=== PATIENT | female | born 1965 | race Caucasian/White ===

== ENCOUNTER 2020-04-24 07:49 | Inpatient (IN) | payer BC ==
[2020-04-24] VITALS (20 sets, daily range): BP systolic 93–117; BP diastolic 44–72
[~2020-04-24] VITALS: Ht 175.3 cm; Wt 85.5 kg
[2020-04-24] MEDS ORDERED: iohexol 300mg/ml 100ml inj. ONE (08:39)
[2020-04-24 08:54] LABS: BASOPHILS % (AUTO) 0.1 % (0-1); EOSINOPHILS % (AUTO) 0.2 % (0-6); HEMATOCRIT 39.9 % (35.0-45.0); HEMOGLOBIN 13.3 g/dl (12.0-16.0); LYMPHOCYTES # (AUTO) 1.6 X10'3 (1.1-4.8); LYMPHOCYTES % (AUTO) 10.3 % (21-51); MEAN CORPUSCULAR HEMOGLOBIN 29.5 PG (27.0-31.0); MEAN CORPUSCULAR HGB CONC 33.3 g/dL (33.0-36.5); MEAN CORPUSCULAR VOLUME 88.5 FL (78-98); MEAN PLATELET VOLUME 7.7 FL (7.4-10.4); MONOCYTES # (AUTO) 1.3 X10'3 (0-0.9); MONOCYTES % (AUTO) 8.9 % (2-12); NEUTROPHILS # (AUTO) 12.1 X10'3 (1.8-7.7); NEUTROPHILS % (AUTO) 80.5 % (42-75); PLATELET COUNT 215 X10'3 (140-440); RED BLOOD COUNT 4.51 X10'6 (4.20-5.60); RED CELL DISTRIBUTION WIDTH 13.3 % (11.5-14.5); WHITE BLOOD COUNT 15.1 X10'3 (4.5-11.0)
[2020-04-24 09:01] LABS: CLARITY,URINE SLIGHTLY CLOUDY (Clear); COLOR,URINE YELLOW (Yellow); GLUCOSE, URINE NEGATIVE (Neg); KETONES,URINE NEGATIVE (Neg); LEUKOCYTE ESTERASE ,URINE NEGATIVE (Neg); NITRITES, URINE NEGATIVE (Neg); OCCULT BLOOD,URINE NEGATIVE (Neg); PROTEIN,URINE NEGATIVE (Neg); UROBILINOGEN,URINE 0.2 E.U/dL (0.2-1.0)
[2020-04-24 09:13] LABS: ALANINE AMINOTRANSFERASE 20 U/L (12-78); ALBUMIN 3.5 G/DL (3.4-5.0); ALBUMIN/GLOBULIN RATIO 0.9 (1.1-1.5); ALKALINE PHOSPHATASE 99 IU/L (46-116); ANION GAP 7 (8-16); ASPARTATE AMINO TRANSFERASE 10 U/L (10-37); BILIRUBIN,TOTAL 1.2 MG/DL (0.1-1.0); BLOOD UREA NITROGEN 9 MG/DL (7-18); BUN/CREATININE RATIO 10.8 (6.6-38.0); CHLORIDE 105 MMOL/L (99-107); CREATININE 0.83 MG/DL (0.40-0.90); GLUCOSE 136 MG/DL (70-104); POTASSIUM 3.7 MMOL/L (3.5-5.1); SODIUM 139 MMOL/L (135-145); TOTAL CARBON DIOXIDE 27.4 MMOL/L (24-32); TOTAL PROTEIN 7.6 G/DL (6.4-8.2); eGFR 72 ML/MIN
[2020-04-24 09:14] LABS: CALCIUM 12.4 MG/DL (8.5-10.1)
[2020-04-24 09:15] LABS: UA COLLECTION TYPE CLN CATCH MIDSTREAM
[2020-04-24 09:19] LABS: BACTERIA,URINE 1+ /HPF (Neg); MUCUS STRANDS MODERATE /LPF (Neg); RBC,URINE 0-2 /HPF (0-2); SQUAMOUS EPITHELIAL CELL,UR MANY /LPF (FEW); WBC,URINE 0-4 /HPF (0-4)
[2020-04-24] MEDS ORDERED: normal saline 1000ml 1,000 ML IV ONE (09:20)
[2020-04-24 10:01] LABS: URINE HCG NEGATIVE (NEG)
[2020-04-24] MEDS ORDERED: metroNIDAZOLE-Flagyl 500mg/NS 100 ML IV STA (10:23)
[2020-04-24] MEDS ORDERED: CefTRIAXone/D5W-Rocephin 1gm 50 ML IV ONE (10:25)
[2020-04-24] MEDS ORDERED: ondansetron/PF 4mg/2ml inj IV PRN ×3 (11:05→14:30)
[2020-04-24] MEDS ORDERED: morphine 2 MG/ML inj. syringe IV PRN ×4 (11:05→14:30)
[2020-04-24] MEDS ORDERED: mag hydrox/Alum hydrox/simeth 30ml oral suspension PO PRN (11:05)
[2020-04-24] MEDS ORDERED: magnesium hydroxide 30ml (MOM) UD suspension PO PRN (11:05)
[2020-04-24] MEDS ORDERED: acetaminophen 325mg tablet PO PRN (11:05)
[2020-04-24] MEDS: normal saline 1000ml 1,000 ML IV SCH ×2 (11:26→21:32)
[2020-04-24] MEDS ORDERED: NO HOME MEDS (12:07)
[2020-04-24] MEDS ORDERED: BUPIVAcaine/PF 2.5 mg/ml (0.25%) 30ml vial ONE (12:49)
[2020-04-24] MEDS ORDERED: LIDOcaine 1% 30ml preserv. free vial ONE (12:49)
[2020-04-24] MEDS ORDERED: proCHLORperazine 10 MG/2 ml inj IV PRN ×2 (14:30)
[2020-04-24] MEDS ORDERED: morphine 4 MG/ML inj SYRINge IV PRN ×2 (14:30)
[2020-04-24] MEDS ORDERED: ringers solution, lacted 1,000 ML IV SCH ×2 (14:30)
[2020-04-24] MEDS ORDERED: meperidine/PF 25mg/ml syringe IV PRN ×6 (14:30)
[2020-04-24] MEDS ORDERED: fentaNYL/PF 50MCG/1 ML 2ML syringe ONE (14:33)
[2020-04-24] MEDS ORDERED: midazolam 2 mg/2 ml injection ONE (14:34)
[2020-04-24] MEDS ORDERED: sevoflurane 250ml liquid IH ONE (14:36)
[2020-04-24] MEDS ORDERED: LIDOcaine 2% (20mg/ml) 5ml vial ONE (14:37)
[2020-04-24] MEDS ORDERED: propofol inj 20 ML IV ONE (14:37)
[2020-04-24] MEDS ORDERED: rocuronium 10mg/ml inj IV ONE (14:37)
[2020-04-24] MEDS ORDERED: dexamethasone sod phosphate 4mg/ml inj. ONE (14:38)
[2020-04-24] MEDS ORDERED: neostigmine methylsulfate 1 MG/ML 10ml vial ONE (14:38)
[2020-04-24] MEDS ORDERED: ondansetron/PF 4mg/2ml inj ONE (14:39)
[2020-04-24] MEDS ORDERED: glycopyrrolate 0.2mg/ml inj ONE (14:39)
[2020-04-24] MEDS ORDERED: ceFOXitin 1000 MG inj ONE ×2 (15:01)
[2020-04-24] MEDS ORDERED: meperidine/PF 25mg/ml syringe ONE (15:41)
--- NOTE | 2020-04-24 15:45 | NUR ---
Received from OR via BED, accompanied by Anesthesiologist DR COOPER and report given by Anesthesiologist. PT DROWSY, NO S/S OF DISTRESS/DISCOMFORT. ABDOMEN W/3 LAP SITES W/BANDAIDS CDI, SMALL PUNCTURE SITE W/STERI-STRIP COVERING CDI. Addendum: 04/24/20 at 1618 by Ann Longoria RN Amended: Links added.
[2020-04-24] MEDS ORDERED: acetaminophen 1,000mg/100ml IV 100 ML IV ONE (15:55)
[2020-04-24] MEDS ORDERED: HYDROcodone/acetaminophen 5mg/325mg tablet PO PRN (16:20)
[2020-04-24] MEDS ORDERED: HYDROcodone/acetaminophen 10/325mg tab PO PRN (16:20)
--- NOTE | 2020-04-24 16:46 | NUR ---
Received report from Mor Juarez RN. Awaiting patient arrival.
[2020-04-24] MEDS: piperacillin/tazo 4.5gm/100ml 100 ML IV SCH ×2 (17:29→23:57)
--- NOTE | 2020-04-24 17:45 | NUR ---
Report called to receiving nurse. Transferred via BED. 1 BAG OF Belongings SENT W/PT TO ROOM 344A, BLL, CALL LIGHT GIVEN, SIDE RAILS UP X 2, RECEIVING RN NOTIFIED OF PTS ARRIVAL. Special Issues communicated to receiving nurse. YES. Addendum: 04/24/20 at 1750 by Ann Longoria RN Amended: Links added.
--- NOTE | 2020-04-24 18:28 | NUR ---
Problems reprioritized. Patient report given, questions answered & plan of care reviewed with JACKIE Chakraborty.
[2020-04-24] MEDS: heparin, porcine 5000 units/ml vial SQ SCH (19:58)
--- NOTE | 2020-04-24 20:07 | NUR ---
Julio C done except for 2 nurse skin check and mrsa swab collection, informed Mylene MEJIA of this.
[2020-04-25] VITALS: BP 94/50
[2020-04-25 04:00] VITALS: BP 98/54
--- NOTE | 2020-04-25 06:20 | NUR ---
Problems reprioritized. Patient report given, questions answered & plan of care reviewed with JACKIE Gudino.
--- NOTE | 2020-04-25 06:24 | NUR ---
Patient in room [facility]. I have received report from Stachino RN and had the opportunity to ask questions and assume patient care.
[2020-04-25 06:33] LABS: BASOPHILS % (AUTO) 0 % (0-1); EOSINOPHILS % (AUTO) 0 % (0-6); HEMATOCRIT 34.6 % (35.0-45.0); HEMOGLOBIN 11.5 g/dl (12.0-16.0); LYMPHOCYTES # (AUTO) 0.9 X10'3 (1.1-4.8); LYMPHOCYTES % (AUTO) 8.1 % (21-51); MEAN CORPUSCULAR HEMOGLOBIN 29.2 PG (27.0-31.0); MEAN CORPUSCULAR HGB CONC 33.3 g/dL (33.0-36.5); MEAN CORPUSCULAR VOLUME 87.8 FL (78-98); MEAN PLATELET VOLUME 7.9 FL (7.4-10.4); MONOCYTES # (AUTO) 0.7 X10'3 (0-0.9); MONOCYTES % (AUTO) 5.8 % (2-12); NEUTROPHILS % (AUTO) 86.1 % (42-75); PLATELET COUNT 181 X10'3 (140-440); RED BLOOD COUNT 3.95 X10'6 (4.20-5.60); RED CELL DISTRIBUTION WIDTH 13.4 % (11.5-14.5); WHITE BLOOD COUNT 11.6 X10'3 (4.5-11.0)
[2020-04-25 06:45] LABS: ALANINE AMINOTRANSFERASE 18 U/L (12-78); ALBUMIN 2.6 G/DL (3.4-5.0); ALBUMIN/GLOBULIN RATIO 0.6 (1.1-1.5); ALKALINE PHOSPHATASE 79 IU/L (46-116); ANION GAP 4 (8-16); ASPARTATE AMINO TRANSFERASE 10 U/L (10-37); BILIRUBIN,TOTAL 0.8 MG/DL (0.1-1.0); BLOOD UREA NITROGEN 7 MG/DL (7-18); BUN/CREATININE RATIO 9.1 (6.6-38.0); CALCIUM 11.4 MG/DL (8.5-10.1); CHLORIDE 108 MMOL/L (99-107); CREATININE 0.77 MG/DL (0.40-0.90); GLUCOSE 160 MG/DL (70-104); POTASSIUM 3.9 MMOL/L (3.5-5.1); SODIUM 138 MMOL/L (135-145); TOTAL CARBON DIOXIDE 25.9 MMOL/L (24-32); eGFR 78 ML/MIN
[2020-04-25 07:00] VITALS: BP 114/69
[2020-04-25] MEDS: heparin, porcine 5000 units/ml vial SQ SCH (08:00)
[2020-04-25] MEDS: piperacillin/tazo 4.5gm/100ml 100 ML IV SCH ×3 (08:33→23:58)
[2020-04-25] MEDS: enoxaparin 40mg/0.4ml syringe SUBCUT SCH (08:33)
--- NOTE | 2020-04-25 08:36 | NUR ---
Heparin held at this time as patient already have new order for Lovenox as prophylaxis for DVT. Will need to clarify this with the doctor unless the doctor wants it both.
[2020-04-25 11:00] VITALS: BP 91/49
[2020-04-25] MEDS: ketorolac trometh. 30mg/ml inj. IV SCH ×2 (12:22→14:00)
[2020-04-25] MEDS: acetaminophen 325mg tablet PO SCH ×2 (14:00→20:00)
--- NOTE | 2020-04-25 15:16 | NUR ---
Patient reported itchiness on her right arm, she said she thinks that its from Toradol that I gave her. Her right arm was a little rash on the skin. Patient stated that she don't really need it. I let Dr. Burton know about this, received order from Dr. Burton to discontinue the Toradol.
--- NOTE | 2020-04-25 15:53 | NUR ---
Left antecubital IV infiltrated. Removed, no complications. LUE non-pitting edematous.
--- NOTE | 2020-04-25 18:31 | NUR ---
Problems reprioritized. Patient report given, questions answered & plan of care reviewed with Prudence RN.
--- NOTE | 2020-04-25 18:43 | NUR ---
Patient in room [facility]. I have received report from ERICKA MEJIA and had the opportunity to ask questions and assume patient care.
[2020-04-25 19:00] VITALS: BP 112/67
[2020-04-25] MEDS: lactobacillus rhamnosus 10,000 MMU CELLS/CAPSULE PO SCH (20:13)
[2020-04-26] VITALS: BP 109/56
[2020-04-26] MEDS: acetaminophen 325mg tablet PO SCH ×2 (02:00→08:01)
[2020-04-26 06:01] LABS: BASOPHILS % (AUTO) 0.2 % (0-1); EOSINOPHILS # (AUTO) 0.1 X10'3 (0-0.9); EOSINOPHILS % (AUTO) 0.9 % (0-6); HEMATOCRIT 31.8 % (35.0-45.0); HEMOGLOBIN 10.6 g/dl (12.0-16.0); LYMPHOCYTES # (AUTO) 1.8 X10'3 (1.1-4.8); LYMPHOCYTES % (AUTO) 25.5 % (21-51); MEAN CORPUSCULAR HEMOGLOBIN 29.7 PG (27.0-31.0); MEAN CORPUSCULAR HGB CONC 33.3 g/dL (33.0-36.5); MEAN CORPUSCULAR VOLUME 89.3 FL (78-98); MEAN PLATELET VOLUME 7.6 FL (7.4-10.4); MONOCYTES # (AUTO) 0.5 X10'3 (0-0.9); MONOCYTES % (AUTO) 6.9 % (2-12); NEUTROPHILS # (AUTO) 4.6 X10'3 (1.8-7.7); NEUTROPHILS % (AUTO) 66.5 % (42-75); PLATELET COUNT 183 X10'3 (140-440); RED BLOOD COUNT 3.56 X10'6 (4.20-5.60); RED CELL DISTRIBUTION WIDTH 13.1 % (11.5-14.5); WHITE BLOOD COUNT 6.9 X10'3 (4.5-11.0)
[2020-04-26 06:20] LABS: ALANINE AMINOTRANSFERASE 29 U/L (12-78); ALBUMIN 2.5 G/DL (3.4-5.0); ALBUMIN/GLOBULIN RATIO 0.6 (1.1-1.5); ALKALINE PHOSPHATASE 78 IU/L (46-116); ANION GAP 6 (8-16); ASPARTATE AMINO TRANSFERASE 18 U/L (10-37); BILIRUBIN,TOTAL 0.4 MG/DL (0.1-1.0); BLOOD UREA NITROGEN 9 MG/DL (7-18); BUN/CREATININE RATIO 12.2 (6.6-38.0); CALCIUM 11.2 MG/DL (8.5-10.1); CHLORIDE 111 MMOL/L (99-107); CREATININE 0.74 MG/DL (0.40-0.90); GLUCOSE 116 MG/DL (70-104); POTASSIUM 3.5 MMOL/L (3.5-5.1); SODIUM 143 MMOL/L (135-145); TOTAL PROTEIN 6.4 G/DL (6.4-8.2); eGFR 82 ML/MIN
--- NOTE | 2020-04-26 06:38 | NUR ---
Problems reprioritized. Patient report given, questions answered & plan of care reviewed with CHRIS MEJIA.
--- NOTE | 2020-04-26 06:46 | NUR ---
Patient in room [facility]A. I have received report from JACKIE NELSON and had the opportunity to ask questions and assume patient care.
[2020-04-26 07:00] VITALS: BP 102/49
[2020-04-26] MEDS ORDERED: AMOX-580 PO (07:57)
[2020-04-26] MEDS ORDERED: HYDR-3965 PO (07:57)
[2020-04-26] MEDS: enoxaparin 40mg/0.4ml syringe SUBCUT SCH (08:00)
[2020-04-26] MEDS: lactobacillus rhamnosus 10,000 MMU CELLS/CAPSULE PO SCH (08:01)
[2020-04-26] MEDS ORDERED: amox tr/potassium clavulanate 875/125mg TAB PO SCH (08:30)
--- NOTE | 2020-04-26 11:35 | NUR ---
PATIENT STABLE AND APPROPRIATE FOR DISCHARGE, IV TAKEN OUT, NEW MED E-SCRIPTED TO PREFERRED PHARMACY AND A SCRIPT FOR PAIN MEDS GIVEN TO PATIENT, EDUCATION GIVEN, ALL BELONGINGS SENT WITH PATIENT, PATIENT TAKEN TO LOBBY IN WHEELCHAIR TO AN AWAITING CAR FAMILY MEMBER WILL TAKE PATIENT HOME
== END 2020-04-26 11:36 | disposition home or self-care (01) | DRG 340 ==
LOC: ER 07:51 → ED HOLD 11:04 → SUR 3N 17:50
PROVIDERS: ADMIT Family Medicine; ATTEND Family Medicine
PROC: 0DTJ4ZZ Resection of Appendix, Percutaneous Endoscopic Approach (ICD-10-PCS; principal; 2020-04-26)
PROC: 0W9G4ZZ Drainage of Peritoneal Cavity, Percutaneous Endoscopic Approach (ICD-10-PCS; 2020-04-26)
PROC: 8E0W4CZ Robotic Assisted Procedure of Trunk Region, Percutaneous Endoscopic Approach (ICD-10-PCS; 2020-04-26)
DX: K35.33 Acute appendicitis with perforation, localized peritonitis, and gangrene, with abscess (principal); E83.52 Hypercalcemia; Z20.822 Contact with and (suspected) exposure to COVID-19; D72.829 Elevated white blood cell count, unspecified; Z80.52 Family history of malignant neoplasm of bladder
CPT/HCPCS: 36415; 74177; 80053; 81001; 81025; 85025; 87081; 87635; 93005; 96374; 99285; A4215; A4618; G0378; J0131; J0694; J0696; J1100; J1644; J1650; J1885; J2001; J2175; J2250; J2405; J2543; J2704; J2710; J3010; J3490; J7030; Q9967